=== PATIENT | female | born 1955 | race Caucasian/White ===

== ENCOUNTER 2016-10-07 10:23 | Emergency (ER) | payer MEDICAID ==
[~2016-10-07] VITALS: Ht 157.5 cm; Wt 59.0 kg
[2016-10-07 10:35] VITALS: BP 154/87
[2016-10-07] MEDS ORDERED: HALDOL5 MG PO (10:42)
[2016-10-07] MEDS ORDERED: GLUCOPHAGE XR750 MG PO (10:42)
[2016-10-07] MEDS ORDERED: GIAZO1.1 GM PO (10:42)
[2016-10-07] MEDS ORDERED: ZESTRIL2.5 MG PO (10:42)
--- NOTE | 2016-10-07 10:46 | NUR ---
Patient ambulated to bed 3 with family. RN evaluating patient at bedside.
--- NOTE | 2016-10-07 10:47 | NUR ---
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 PT DENIES N/V/D; SKIN IS PINK/WARM/DRY; AAOX4 WITH EVEN AND STEADY GAIT; LUNGS CLEAR BL; HR EVEN AND REGULAR; PT DENIES ANY FEVER, CP, SOB, OR COUGH AT THIS TIME; PATIENT STATES PAIN OF 8/10 AT THIS TIME; VSS; PATIENT POSITIONED FOR COMFORT; HOB ELEVATED; BEDRAILS UP X2; BED DOWN. MARY RAMSEY MADE AWARE OF PT STATUS. Addendum: 10/07/16 at 1058 by [email or web address] Amendment undone in [facility] - 10/07/16 at 1558 by [email or web address] PT DENIES HURTING SELF OR OTHERS AT THIS TIME.
--- NOTE | 2016-10-07 10:48 | NUR ---
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 SISIER STATES "PT REFUSES TO EAT & DIDN'T SLEEP 5 DAYS" . PT DENIES N/V/D; SKIN IS PINK/WARM/DRY; AAOX4 WITH EVEN AND STEADY GAIT; LUNGS CLEAR BL; HR EVEN AND REGULAR; PT DENIES ANY FEVER, CP, SOB, OR COUGH AT THIS TIME; PATIENT STATES PAIN OF 8/10 AT THIS TIME; VSS; PATIENT POSITIONED FOR COMFORT; HOB ELEVATED; BEDRAILS UP X2; BED DOWN. ER MD MADE AWARE OF PT STATUS.
--- NOTE | 2016-10-07 10:48 | NUR ---
SISTER AT BEDSIDE
--- NOTE | 2016-10-07 17:09 | NUR ---
NO IV ESTABLISHED; NO IV MEDICATIONS ORDERED; ER MD DR. REINOSO NOTIFIED. PT D/C PER ER MD DR. REINOSO ORDER.
[2016-10-07 17:10] VITALS: BP 121/70
--- NOTE | 2016-10-07 17:10 | NUR ---
Patient discharged with v/s stable. Written and verbal after care instructions given and explained. Patient verbalized understanding. Ambulatory with steady gait. All questions addressed prior to discharge. Advised to follow up with PMD.
== END 2016-10-07 17:10 | disposition home or self-care (01) ==
LOC: MED 10:23
DX: F23 Brief psychotic disorder (principal); R68.83 Chills (without fever); R35.8 Other polyuria; E11.9 Type 2 diabetes mellitus without complications; I10 Essential (primary) hypertension; Z86.59 Personal history of other mental and behavioral disorders